=== PATIENT | female | born 1980 | race African-American/Black ===

== ENCOUNTER 2017-01-28 23:34 | Emergency (ER) | payer MEDICAID, OTHER ==
[~2017-01-28] VITALS: Ht 162.6 cm; Wt 61.0 kg
[2017-01-29] MEDS ORDERED: ACETAMINOPHEN 325MG TABLET PO ONE (02:15)
[2017-01-29 02:25] VITALS: BP 107/44
== END 2017-01-29 06:06 | disposition home or self-care (01) ==
LOC: ER 23:34
DX: S09.90XA Unspecified injury of head, initial encounter (principal); S09.93XA Unspecified injury of face, initial encounter; M54.89 Other dorsalgia; Z98.890 Other specified postprocedural states; Y04.0XXA Assault by unarmed brawl or fight, initial encounter; Y93.89 Activity, other specified; Y92.018 Other place in single-family (private) house as the place of occurrence of the external cause
CPT/HCPCS: 70450; 70486; 72100; 72125; 81025; 99284